=== PATIENT | male | born 1945 | race Caucasian/White ===

== ENCOUNTER → 2022-10-26 14:35 | Outpatient (CLI) | payer MEDICARE, SELFPAY ==
[2022-10-26 19:28] LABS: Alanine Aminotransferase 19 U/L (12-78); Albumin Level 4.3 g/dl (3.5-5.0); Albumin/Globulin Ratio 1.3 (1.1-1.8); Alkaline Phosphatase 72 U/L (38-126); Anion Gap 13.2 mEq/L (5-15); Aspartate Amino Transferase 27 U/L (17-59); Bilirubin,Total 0.7 mg/dl (0.2-1.3); Blood Urea Nitrogen 15 mg/dl (9-20); Calcium 8.9 mg/dl (8.4-10.2); Carbon Dioxide 30 mmol/L (22.0-30.0); Chloride 101 mmol/L (98-107); Estimated Glomerular Filt Rate 82 ml/min (>60); GFR (African American) 100 ML/MIN (>60); Globulin 3.4 g/dL (1.3-3.2); Glucose 91 mg/dl (74-100); Potassium 4.2 mmoL/L (3.5-5.1); Sodium 140 mmol/L (136-145); Total Protein,Serum 7.7 g/dl (6.3-8.2)
[2022-10-26 19:40] LABS: Basophils # 0.1 K/mm3 (0-0.2); Basophils % 1.3 % (0.1-2.0); Eosinophils # 0.1 K/mm3 (0.0-0.4); Eosinophils % 1.9 % (0.1-12.0); Hematocrit 47.6 % (42.0-52.0); Hemoglobin 15.2 g/dL (14.1-18.0); Lymphocytes # 1.4 K/mm3 (0.7-4.5); Lymphocytes % 21.4 % (10-50); Mean Corpuscular Volume 90.7 fl (80-94); Monocytes # 0.5 K/mm3 (0.1-1.0); Monocytes % 6.8 % (1.7-9.3); Neutrophils # 4.6 K/mm3 (1.8-7.8); Neutrophils % 68.6 % (37.0-80.0); Platelet Count 337 K/mm3 (142-424); Red Blood Count 5.25 M/mm3 (4.60-6.20); Red Cell Distribution Width 13.4 % (11.5-17.5); White Blood Count 6.7 K/mm3 (4.8-10.8)
[2022-10-26 19:59] LABS: Thyroid Stimulating Hormone 0.77 uIU/mL (0.465-4.68)
[2022-10-26 20:18] LABS: Vitamin B12 437 pg/mL (239-931)
[2022-11-03 10:37] LABS: 1,25 Dihydroxy Vitamin D 45 pg/mL (.); 1,25-Dihydroxy, Vitamin D-2 <10 pg/mL (.); 1,25-Dihydroxy, Vitamin D-3 45 pg/mL (.)
== END ==
PROVIDERS: PCP Family Medicine; Visit Provider Family Medicine
DX: Z09 Encounter for follow-up examination after completed treatment for conditions other than malignant neoplasm (principal); C85.13 Unspecified B-cell lymphoma, intra-abdominal lymph nodes
CPT/HCPCS: 80053; 82607; 82652; 84443; 85025

== ENCOUNTER 2023-01-13 09:45 | Outpatient (CLI) | payer MEDICARE, SELFPAY ==
[2023-01-13 09:55] VITALS: BMI 23.8
--- NOTE | 2023-01-13 10:00 | PC.NURSE ---
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
--- NOTE | 2023-01-13 10:02 | CT_ITS ---
FINAL REPORT TECHNIQUE: Thin section axial images were obtained through the abdomen after intravenous contrast. Reconstruction images were obtained from the axial data. Exam was performed using dose reduction techniques. CLINICAL HISTORY: LYMPHOMA COMPARISON: none FINDINGS: There are several subcentimeter hypodense lesions in the left lobe of the liver and a single lesion in the caudate lobe favored to be small hepatic cysts. There are gallstones in a contracted gallbladder. The spleen, adrenal glands, and pancreas are unremarkable. There is no hydronephrosis or solid renal mass. Abdominal GI tract demonstrates no evidence of small-bowel obstruction. There is retroperitoneal lymphadenopathy with a left periaortic lymph node at the level of the mid kidneys measuring 4.8 cm. There is abnormal soft tissue surrounding the aorta and IVC at the level of the lower pole of the kidneys measuring 5.3 cm. No ascites. The urinary bladder is distended. There is a posterior right bladder diverticulum. There is diverticulosis without evidence of acute diverticulitis. The appendix is normal. There is no pelvic lymphadenopathy. No ascites. No acute osseous abnormalities identified. IMPRESSION: Retroperitoneal lymphadenopathy consistent with lymphoma. Hypodense liver lesions, favor cysts. Gallstones. Reviewed, Interpreted and Dictated by Sara Chan MD Transcribed by Nancie Coffey Authenticated and [facility]
--- NOTE | 2023-01-13 10:02 | CT_ITS ---
FINAL REPORT TECHNIQUE: Thin section axial images were obtained from the thoracic inlet through the upper abdomen after intravenous contrast injection. Reconstruction images were obtained from the axial data. Exam was performed using dose reduction technique. CLINICAL HISTORY: LYMPHOMA COMPARISON: none FINDINGS: There is no axillary lymphadenopathy. There is a borderline AP window lymph node measuring 13 mm. No hilar lymphadenopathy. There is no pleural or pericardial effusion. There is elevation of the right hemidiaphragm. There is right lower lobe atelectasis. No suspicious nodules or mass. No acute osseous abnormality. IMPRESSION: Borderline AP window lymph node. Otherwise no lymphadenopathy. No acute intrathoracic abnormality. Reviewed, Interpreted and Dictated by Sara Chan MD Transcribed by Nancie Coffey Authenticated and [facility]
[2023-01-13 10:17] LABS: Basophils # 0.1 K/mm3 (0-0.2); Basophils % 1.3 % (0.1-2.0); Eosinophils # 0.3 K/mm3 (0.0-0.4); Eosinophils % 4.1 % (0.1-12.0); Hematocrit 49.1 % (42.0-52.0); Hemoglobin 15.3 g/dL (14.1-18.0); Lymphocytes # 1.4 K/mm3 (0.7-4.5); Lymphocytes % 22.8 % (10-50); Mean Corpuscular HGB Conc 31.2 g/dL (31.8-35.4); Mean Corpuscular Hemoglobin 28.6 pg (27.0-31.2); Mean Corpuscular Volume 91.4 fl (80-94); Mean Platelet Volume 8.8 fl (7.4-10.4); Monocytes # 0.4 K/mm3 (0.1-1.0); Monocytes % 7.1 % (1.7-9.3); Neutrophils # 3.9 K/mm3 (1.8-7.8); Neutrophils % 64.6 % (37.0-80.0); Platelet Count 240 K/mm3 (142-424); Red Blood Count 5.36 M/mm3 (4.60-6.20); Red Cell Distribution Width 13.6 % (11.5-17.5); White Blood Count 6.1 K/mm3 (4.8-10.8)
[2023-01-13 10:18] LABS: Chloride 100 mmol/L (98-107); Potassium 3.5 mmoL/L (3.5-5.1); Sodium 139 mmol/L (136-145)
[2023-01-13 10:20] LABS: Alanine Aminotransferase 23 U/L (12-78); Alkaline Phosphatase 73 U/L (38-126); Aspartate Amino Transferase 31 U/L (17-59); Bilirubin,Total 0.5 mg/dl (0.2-1.3); Blood Urea Nitrogen 10 mg/dl (9-20); Creatinine Clearance Estimated 61 mL/min (50-200); Estimated Glomerular Filt Rate 82 ml/min (>60); GFR (African American) 100 ML/MIN (>60)
[2023-01-13 10:21] LABS: Albumin Level 4.3 g/dl (3.5-5.0); Albumin/Globulin Ratio 1.2 (1.1-1.8); Anion Gap 8.5 mEq/L (5-15); Calcium 8.8 mg/dl (8.4-10.2); Carbon Dioxide 34 mmol/L (22.0-30.0); Globulin 3.6 g/dL (1.3-3.2); Glucose 107 mg/dl (74-100); Total Protein,Serum 7.9 g/dl (6.3-8.2)
--- NOTE | 2023-01-13 10:23 | PC.NURSE ---
1023-notifed rad that pt's labs were back and they could come get him for ct scan.
--- NOTE | 2023-01-13 10:28 | PC.NURSE ---
1028Luke from [facility] here to take pt to ct scan;pt will be d/c'd home from there.
== END 2023-01-13 10:28 | disposition home or self-care (01) ==
LOC: RAD 09:46
PROVIDERS: PCP Family Medicine; Visit Provider Internal Medicine Medical Oncology
DX: C85.10 Unspecified B-cell lymphoma, unspecified site (principal); Z03.89 Encounter for observation for other suspected diseases and conditions ruled out
CPT/HCPCS: 36415; 71260; 74177; 80053; 85025; Q9967

== ENCOUNTER → 2023-05-19 09:22 | Outpatient (CLI) | payer MEDICARE, SELFPAY ==
[2023-05-19 10:03] LABS: Blood Urea Nitrogen 12 mg/dl (9-20); Estimated Glomerular Filt Rate 94 ml/min (>60); GFR (African American) 114 ML/MIN (>60)
--- NOTE | 2023-05-19 10:25 | CT_ITS ---
FINAL REPORT TECHNIQUE: Axial CT images of the abdomen and pelvis were obtained before and after the administration of IV contrast. This study was performed with techniques to keep radiation doses as low as reasonably achievable (ALARA). Individualized dose reduction techniques using automated exposure control or adjustment of mA and/or kV according to the patient''s size were employed. CLINICAL HISTORY: LYMPHOMA COMPARISON: 01/13/2023 FINDINGS: Abdomen: The heart is normal in size. There are small hepatic cysts. There is a gallstone in a collapsed thick-walled gallbladder, stable. The spleen is unremarkable. No adrenal masses present. The pancreas has an unremarkable appearance. The kidneys enhance normally. The aorta is normal in caliber. There is a retroperitoneal mass measuring 5.6 x 4.3 cm, previously measured 5.5 x 4.3 cm. Finding is stable consistent with history of lymphoma. Precontrast images demonstrate no evidence of nephrolithiasis. Pelvis: The appendix is normal. There is sigmoid diverticulosis without evidence of diverticulitis. There is a right-sided bladder diverticulum which is stable. There is no evidence of mass or adenopathy. There is no evidence of bowel obstruction. There are bilateral L5 pars defects with 8 mm of anterolisthesis of L5 on S1. IMPRESSION: Stable retroperitoneal mass consistent with history of lymphoma. Cholelithiasis. Reviewed, Interpreted and Dictated by Abelino Emerson III, MD Transcribed by Cori Mota Authenticated and [facility]
--- NOTE | 2023-05-19 10:32 | CT_ITS ---
FINAL REPORT TECHNIQUE: Axial images of the chest was performed with and without contrast by computed tomography. Sagittal and coronal reformatted images were obtained and reviewed. This study was performed with techniques to keep radiation doses as low as reasonably achievable (ALARA). Individualized dose reduction techniques using automated exposure control or adjustment of mA and/or kV according to the patient's size were employed. CLINICAL HISTORY: CANCER COMPARISON: 01/13/2023 FINDINGS: There are small mediastinal nodes which are stable. No axillary nodes are identified. There is a small left pleural effusion. No pericardial effusion is identified. The heart is normal in size. There are areas of bilateral atelectasis. There is mild emphysema. IMPRESSION: Stable small mediastinal nodes. Small left pleural effusion. Reviewed, Interpreted and Dictated by Abelino Emerson III, MD Transcribed by Cori Mota Authenticated and [facility][1]
== END ==
PROVIDERS: PCP Family Medicine; Visit Provider Internal Medicine Medical Oncology
DX: C85.13 Unspecified B-cell lymphoma, intra-abdominal lymph nodes
CPT/HCPCS: 36415; 71270; 74178; 82565; 84520; Q9967

== ENCOUNTER → 2023-06-16 12:03 | Outpatient (CLI) | payer MEDICARE, SELFPAY ==
[2023-06-16 12:24] LABS: Basophils % 0.5 % (0.1-2.0); Eosinophils # 0.2 K/mm3 (0.0-0.4); Eosinophils % 3.1 % (0.1-12.0); Hemoglobin 15.6 g/dL (14.1-18.0); Lymphocytes # 1.3 K/mm3 (0.7-4.5); Lymphocytes % 19.2 % (10-50); Mean Corpuscular HGB Conc 32.4 g/dL (31.8-35.4); Mean Corpuscular Hemoglobin 29.1 pg (27.0-31.2); Mean Corpuscular Volume 89.9 fl (80-94); Mean Platelet Volume 8.4 fl (7.4-10.4); Monocytes # 0.5 K/mm3 (0.1-1.0); Monocytes % 6.8 % (1.7-9.3); Neutrophils # 4.7 K/mm3 (1.8-7.8); Neutrophils % 70.5 % (37.0-80.0); Platelet Count 284 K/mm3 (142-424); Red Blood Count 5.34 M/mm3 (4.60-6.20); Red Cell Distribution Width 13.2 % (11.5-17.5); White Blood Count 6.6 K/mm3 (4.8-10.8)
[2023-06-16 13:56] LABS: Chloride 101 mmol/L (98-107); Sodium 138 mmol/L (136-145)
[2023-06-16 13:57] LABS: Potassium 3.9 mmoL/L (3.5-5.1)
[2023-06-16 13:59] LABS: Alanine Aminotransferase 19 U/L (12-78); Alkaline Phosphatase 86 U/L (38-126); Anion Gap 12.9 mEq/L (5-15); Aspartate Amino Transferase 28 U/L (17-59); Bilirubin,Total 0.5 mg/dl (0.2-1.3); Blood Urea Nitrogen 14 mg/dl (9-20); Carbon Dioxide 28 mmol/L (22.0-30.0); Estimated Glomerular Filt Rate 73 ml/min (>60); GFR (African American) 88 ML/MIN (>60)
[2023-06-16 14:00] LABS: Albumin Level 3.7 g/dl (3.5-5.0); Albumin/Globulin Ratio 0.9 (1.1-1.8); Calcium 9.2 mg/dl (8.4-10.2); Globulin 3.9 g/dL (1.3-3.2); Glucose 115 mg/dl (74-100); Total Protein,Serum 7.6 g/dl (6.3-8.2)
== END ==
PROVIDERS: PCP Family Medicine; Visit Provider Internal Medicine Medical Oncology
DX: C85.90 Non-Hodgkin lymphoma, unspecified, unspecified site (principal)
CPT/HCPCS: 36415; 80053; 85025

== ENCOUNTER 2023-12-01 07:26 | Outpatient (CLI) | payer MEDICARE, SELFPAY ==
--- NOTE | 2023-12-01 07:37 | CT_ITS ---
FINAL REPORT TECHNIQUE: The patient was injected with IV contrast. Axial images were obtained of the chest by computed tomography. Precontrast images were also obtained. This study was performed with techniques to keep radiation doses as low as reasonably achievable (ALARA). Individualized dose reduction techniques using automated exposure control or adjustment of mA and/or kV according to the patient's size were employed. CLINICAL HISTORY: LYMPHOMA COMPARISON: 05/19/2023 FINDINGS: CT OF THE CHEST WITH AND WITHOUT CONTRAST: There is no axillary adenopathy. Small mediastinal nodes are stable. Heart size is normal. There is no pericardial effusion identified. There has been interval resolution of the small left pleural effusion. There is no suspicious pulmonary nodule or infiltrate identified. There is scarring in the right lower lobe. Mild emphysema is noted. IMPRESSION: Stable small mediastinal nodes. Resolution of previous left pleural effusion. Reviewed, Interpreted and Dictated by Abelino Emerson III, MD Transcribed by Nancie Coffey Authenticated and [facility]
--- NOTE | 2023-12-01 07:37 | CT_ITS ---
FINAL REPORT TECHNIQUE: Axial CT images of the abdomen and pelvis were obtained before and after the administration of IV contrast. Oral contrast was administered.This study was performed with techniques to keep radiation doses as low as reasonably achievable (ALARA). Individualized dose reduction techniques using automated exposure control or adjustment of mA and/or kV according to the patient''s size were employed. CLINICAL HISTORY: LYMPHOMA, LLQ PAIN COMPARISON: 05/19/2023 FINDINGS: Abdomen: There is elevation of the right hemidiaphragm. There are several less than 1 cm liver masses which are stable and nonspecific. Gallstone is noted and a collapsed thick-walled gallbladder.. The spleen is unremarkable. No adrenal masses present. The pancreas has an unremarkable appearance. The kidneys enhance normally. The aorta is normal in caliber. Again noted is an infiltrative mass surrounding the aorta and inferior vena cava at the level of the retroaortic left renal vein. Mass measures 6.5 x 4.6 cm and previously measured 5.6 x 4.3 cm. Precontrast images demonstrate no evidence of nephrolithiasis. Pelvis: The appendix is not well visualized. There is descending and sigmoid diverticulosis. The urinary bladder is moderately distended. There is a right-sided bladder diverticulum with a small stone within it which is stable. No inflammatory process is seen. There are bilateral L5 pars defects with grade 2 anterolisthesis of L5 on S1. 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 Cholelithiasis. Reviewed, Interpreted and Dictated by Abelino Emerson III, MD Transcribed by Nancie Coffey Authenticated and [facility]
[2023-12-01 08:18] LABS: Basophils % 0.5 % (0.1-2.0); Chloride 105 mmol/L (98-107); Eosinophils # 0.2 K/mm3 (0.0-0.4); Eosinophils % 2.4 % (0.1-12.0); Hematocrit 46.1 % (42.0-52.0); Hemoglobin 15.7 g/dL (14.1-18.0); Lymphocytes # 1.6 K/mm3 (0.7-4.5); Lymphocytes % 26.4 % (10-50); Mean Corpuscular HGB Conc 34.1 g/dL (31.8-35.4); Mean Corpuscular Hemoglobin 29.7 pg (27.0-31.2); Mean Corpuscular Volume 87.3 fl (80-94); Mean Platelet Volume 8.4 fl (7.4-10.4); Monocytes # 0.6 K/mm3 (0.1-1.0); Monocytes % 9.9 % (1.7-9.3); Neutrophils # 3.8 K/mm3 (1.8-7.8); Neutrophils % 60.9 % (37.0-80.0); Platelet Count 304 K/mm3 (142-424); Potassium 3.6 mmoL/L (3.5-5.1); Red Blood Count 5.28 M/mm3 (4.60-6.20); Red Cell Distribution Width 13.3 % (11.5-17.5); Sodium 138 mmol/L (136-145); White Blood Count 6.2 K/mm3 (4.8-10.8)
[2023-12-01 08:20] LABS: Blood Urea Nitrogen 9 mg/dl (9-20); Estimated Glomerular Filt Rate 82 ml/min (>60); GFR (African American) 99 ML/MIN (>60)
[2023-12-01 08:21] LABS: Alanine Aminotransferase 21 U/L (12-78); Albumin Level 4.1 g/dl (3.5-5.0); Albumin/Globulin Ratio 1.1 (1.1-1.8); Alkaline Phosphatase 77 U/L (38-126); Anion Gap 3.6 mEq/L (5-15); Aspartate Amino Transferase 32 U/L (17-59); Bilirubin,Total 0.7 mg/dl (0.2-1.3); Calcium 8.9 mg/dl (8.4-10.2); Carbon Dioxide 33 mmol/L (22.0-30.0); Globulin 3.8 g/dL (1.3-3.2); Glucose 115 mg/dl (74-100); Total Protein,Serum 7.9 g/dl (6.3-8.2)
[2023-12-01] MEDS: SODIUM CHLORIDE 0.9% 10ML SYR (RAD ONLY) 10 ML IV (08:53)
[2023-12-01] MEDS: IOPAMIDOL-370 (76%);100ML BOTTLE 75 ML IV (08:53)
== END 2023-12-01 23:59 ==
LOC: RAD 07:27
PROVIDERS: PCP Family Medicine; Visit Provider Internal Medicine Medical Oncology
DX: C85.13 Unspecified B-cell lymphoma, intra-abdominal lymph nodes (principal)
CPT/HCPCS: 71270; 74178; 80053; 85025; Q9967

== ENCOUNTER 2024-07-03 12:05 | Outpatient (CLI) | payer MEDICARE, SELFPAY | END 2024-07-03 23:59 | disposition home or self-care (01) | LOC: LAB.DROPOF 07-04 11:59 | PROVIDERS: PCP Nurse Practitioner; Visit Provider Nurse Practitioner | DX: R30.0 Dysuria (principal); N12 Tubulo-interstitial nephritis, not specified as acute or chronic | CPT/HCPCS: 87086; 87088 ==

== ENCOUNTER 2024-07-12 09:45 | Outpatient (CLI) | payer MEDICARE, SELFPAY | END 2024-07-12 23:59 | disposition home or self-care (01) | LOC: LAB.DROPOF 07-13 15:00 | PROVIDERS: PCP Family Medicine; Visit Provider Family Medicine | DX: N15.9 Renal tubulo-interstitial disease, unspecified (principal) | CPT/HCPCS: 87086 ==